=== PATIENT | female | born 1965 | race Caucasian/White ===

== ENCOUNTER → 2023-05-01 14:02 | Outpatient (CLI) | payer OTHER, SELFPAY ==
[2023-05-01 14:40] LABS: Add Manual Diff / Slide Review NO; Basophils Absolute Auto 100 /uL (0-100); Basophils Percent Auto 1.1 % (0-2); Eosinophils Absolute Auto 200 /uL (0-450); Eosinophils Percent Auto 2.8 % (2-4); Hematocrit 44.9 % (36-46); Hemoglobin 15.2 g/dL (12.0-16.0); Lymphocytes Absolute Auto 2300 /uL (1100-4500); Lymphocytes Percent Auto 35.4 % (25-40); Mean Corpuscular HGB Conc 33.9 % (30-36); Mean Corpuscular Hemoglobin 29.1 PG (26-34); Mean Corpuscular Volume 85.8 fL (80-100); Monocytes Absolute Auto 600 /uL (0-900); Monocytes Percent Auto 9.9 % (3-14); Neutrophils Absolute Auto 3300 /uL (1500-7000); Neutrophils Percent Auto 50.8 % (50-75); Platelet Count 227 X10^3/uL (150-400); Red Blood Cell Count 5.24 X10^6/uL (4.0-5.2); Red Cell Distribution Width 13.8 % (11.6-14.8); White Blood Cell Count 6.5 X10^3/uL (4.5-11.0)
[2023-05-01 15:04] LABS: Alanine Aminotransferase 35 IU/L (<35); Albumin 4.6 g/dL (3.5-5.0); Albumin Globulin Ratio 1.5 (1.0-2.8); Alkaline Phosphatase 81 U/L (38-126); Aspartate Aminotransferase 33 IU/L (14-36); BUN Creatinine Ratio 16.3 (6-22); Bilirubin Total 0.7 mg/dL (0.2-1.3); Blood Urea Nitrogen 16 mg/dL (7-17); Calcium 9.5 mg/dL (8.4-10.2); Carbon Dioxide 23 mmol/L (22-32); Chloride 105 mmol/L (98-107); Cholesterol 231 mg/dL (140-199); Estimated Glomerular Filt Rate > 60 mL/min (>60); Globulin 3.1 g/dL (1.7-4.1); Glucose 197 mg/dL (70-100); HDL Cholesterol 43 mg/dL (40-60); HEMOLYSIS < 15 (0-50); LDL Cholesterol Calculated 155 mg/dL (<100); Potassium 4.4 mmol/L (3.4-5.1); Sodium 137 mmol/L (137-145); Total Protein 7.7 g/dL (6.3-8.2); Triglycerides 164 mg/dL (35-150)
[2023-05-01 15:33] LABS: TSH w/ Reflex to FT4 2.92 uIU/mL (0.47-4.68)
== END ==
PROVIDERS: PCP Family Medicine; Referring Provider Family Medicine; Visit Provider Family Medicine
DX: Z00.00 Encounter for general adult medical examination without abnormal findings (principal); R53.83 Other fatigue
CPT/HCPCS: 36415; 80053; 80061; 84153; 84443; 85025

== ENCOUNTER → 2023-06-03 12:23 | Outpatient (CLI) | payer OTHER, SELFPAY ==
[2023-06-03 13:52] LABS: Alanine Aminotransferase 34 IU/L (<35); Albumin 4.7 g/dL (3.5-5.0); Albumin Globulin Ratio 1.8 (1.0-2.8); Alkaline Phosphatase 78 U/L (38-126); Aspartate Aminotransferase 31 IU/L (14-36); BUN Creatinine Ratio 14.1 (6-22); Bilirubin Total 0.7 mg/dL (0.2-1.3); Blood Urea Nitrogen 13 mg/dL (7-17); Calcium 9.6 mg/dL (8.4-10.2); Carbon Dioxide 26 mmol/L (22-32); Chloride 105 mmol/L (98-107); Estimated Glomerular Filt Rate > 60 mL/min (>60); Globulin 2.6 g/dL (1.7-4.1); Glucose 143 mg/dL (70-100); HEMOLYSIS < 15 (0-50); Potassium 4.2 mmol/L (3.4-5.1); Sodium 137 mmol/L (137-145); Total Protein 7.3 g/dL (6.3-8.2)
[2023-06-03 14:17] LABS: Hemoglobin A1C% w Est Avg Glu 9.6 % (4.0-6.0)
== END ==
LOC: LAB 12:24
PROVIDERS: PCP Family Medicine; Referring Provider Family Medicine; Visit Provider Family Medicine
DX: R73.09 Other abnormal glucose (principal)
CPT/HCPCS: 36415; 80053; 83036

== ENCOUNTER → 2023-07-23 16:30 | Outpatient (CLI) | payer OTHER, SELFPAY ==
[2023-07-23 17:34] LABS: Hemoglobin A1C% w Est Avg Glu 7.2 % (4.0-6.0)
[2023-07-23 18:03] LABS: Alanine Aminotransferase 25 IU/L (<50); Albumin 4.5 g/dL (3.5-5.0); Albumin Globulin Ratio 1.7 (1.0-2.8); Alkaline Phosphatase 62 U/L (38-126); Aspartate Aminotransferase 33 IU/L (17-59); BUN Creatinine Ratio 10.9 (6-22); Bilirubin Total 0.7 mg/dL (0.2-1.3); Blood Urea Nitrogen 10 mg/dL (9-20); Calcium 9.7 mg/dL (8.4-10.2); Carbon Dioxide 24 mmol/L (22-32); Chloride 104 mmol/L (98-107); Cholesterol 216 mg/dL (140-199); Estimated Glomerular Filt Rate > 60 mL/min (>60); Globulin 2.6 g/dL (1.7-4.1); Glucose 76 mg/dL (70-100); HDL Cholesterol 53 mg/dL (40-60); HEMOLYSIS < 15 (0-50); LDL Cholesterol Calculated 149 mg/dL (<100); Potassium 4.3 mmol/L (3.4-5.1); Sodium 138 mmol/L (137-145); Total Protein 7.1 g/dL (6.3-8.2); Triglycerides 68 mg/dL (35-150)
== END ==
PROVIDERS: PCP Family Medicine; Referring Provider Family Medicine; Visit Provider Family Medicine
DX: E78.5 Hyperlipidemia, unspecified (principal); E11.9 Type 2 diabetes mellitus without complications; R53.83 Other fatigue
CPT/HCPCS: 36415; 80053; 80061; 83036

== ENCOUNTER → 2023-08-04 10:45 | Outpatient (CLI) | payer OTHER, SELFPAY ==
--- NOTE | 2023-08-20 18:12 | DIAB.MNT ---
Initial Diabetes Medical Nutrition Therapy Assessment Name: Jacob Sam Date: 08/04/23 Time: 11a-12p Dx: Type II Diabetes Learning style: watching, reading, doing Murtaza presents with , Lis, for initial Dm visit. Reports new diagnosis with last two hgA1c of 9.6% 05/2023 and 7.2% 07/2023. Great improvement in HgA1c over the last two months with diet changes Endorses some numbness/tingling in feet. Wants to understand more about good carbs vs bad carbs, label reading, total CHO recs, Currently on a very low CHO diet per report. Wants to add some better CHO to diet. Diet Recall: 7a: eggs and coffee 11a: Tajik yogurt plain with berries and carrots 530p: protein and veggies 6-8p: sf chocolate or 100kcal popcorn bag 16.9oz x 3-4 water, coffee, diet soda Anthropometrics: Ht: 69 Wt: 190# 07/2023 at PCP Physical Activity: Walks everyday 3-4 mi (45 min or more). Weekends more walks, 5mi. Likes to walk and hike. Self-Monitoring Blood Glucose: None Diabetes Medications: 500mg Metformin BID Pertinent Labs: HgA1c: 9.6% 05/2023 7.2% 07/2023 cholesterol: 216 LDL: 149 HDL: 53 T Past Medical History: (Last Reviewed 07/28/23 @ 16:11 by Meliton Storm DO) Acne Allergies (~2015) Diabetic neuropathy Eczema Fatigue Foot pain (~2022) Hearing loss (~2021) Right Hyperlipidemia Preventative health care Shrimp allergy (~2014) Strain of left foot Type 2 diabetes mellitus Nutrition Rx: Carbohydrates: Meal:45g Snack:15-30g Nutrition Diagnosis: - Food and nutrition related knowledge deficit r/t new dx T2dm aeb pt report, diet recall, and hga1c >6.5% Intervention: This participant was very receptive. Provided appropriate educational handouts. Discussed the following topics: Completed intake assessment. Discussed barriers to care. Pathophysiology of T2DM HgA1c, its correlation to blood glucose numbers, and rationale for goal Importance of self-monitoring, how often, and when to check. Suggested checking at different times to evaluate meals Plate Method, impact of macronutrients on blood sugar, meal timing, carbohydrate counting, pairing macronutrients and spreading out carbohydrates for better blood glucose management Recommended servings for carbohydrates at meals and snacks Heart health nutrition Brainstormed appropriate meal/snack ideas based on food preferences Role of physical activity and following provider guidelines for safety Created SMART goals for patient self-care and success. Goals: Add 2p snack Pair CHO and protein Check pharmacy for SMBG Follow-up: SHANNA SONI follow-up in 3-4 weeks Claudia Dwyer RDN, NAE Certified Diabetes Care and Head Of English P: [phone] Thank you for this referral
== END ==
PROVIDERS: PCP Family Medicine; Referring Provider Family Medicine
DX: E11.9 Type 2 diabetes mellitus without complications (principal); Z71.3 Dietary counseling and surveillance
CPT/HCPCS: 97802

== ENCOUNTER → 2023-09-08 10:50 | Outpatient (CLI) | payer OTHER, SELFPAY ==
--- NOTE | 2023-09-08 11:06 | DIAB.MNTFU ---
Follow-up Diabetes Medical Nutrition Therapy Assessment Name: Jacob Sam Date: 09/08/23 Time: 9821-3384 Dx: Type II Diabetes Murtaza presents for Dm follow-up. Reports adding an afternoon snack around 515-530p. Feels really hungry after work. Afternoons at work are really busy, so no afternoon snack at 2-3p as previously rec'd. Eats dinner at 6p. Crackers and cheese is usual snack. Noted elevated LDL and total cholesterol last lipids. Dinner has been veggies and protein. Recently returned from vacation. Feels reading to get back to diet changes. States he is unclear on what his wt goal should be. Endorses low 180s for wt 20 years ago. Around 150s after college. Feels his pants are feeling very lose. Diet Recall: 7a: eggs and coffee 11a: Kiswahili yogurt plain with berries and carrots 5p: crackers x 6-8 with cheese 6p: protein and veggies 6-8p: sf chocolate or 100kcal popcorn bag 16.9oz x 3-4 water, coffee, diet soda Anthropometrics: Ht: 69 Wt: 186# reported 190# 07/2023 at PCP Physical Activity: Walks most day 3-4 mi (45 min or more). Weekends more walks, 5mi. Likes to walk and hike. Self-Monitoring Blood Glucose: None. No rx. RD messaged provider workgroup. Diabetes Medications: 500mg Metformin BID Pertinent Labs: HgA1c: 9.6% 05/2023 7.2% 07/2023 cholesterol: 216 LDL: 149 HDL: 53 T Past Medical History: (Last Reviewed 07/28/23 @ 16:11 by Meliton Storm DO) Acne Allergies (~2015) Diabetic neuropathy Eczema Fatigue Foot pain (~2022) Hearing loss (~2021) Right Hyperlipidemia Preventative health care Shrimp allergy (~2014) Strain of left foot Type 2 diabetes mellitus Nutrition Rx: Carbohydrates: Meal:45g Snack:15-30g Nutrition Diagnosis: - Food and nutrition related knowledge deficit r/t new dx T2dm aeb pt report, diet recall, and hga1c >6.5% Intervention: This participant was very receptive. Provided appropriate educational handouts. Discussed the following topics: Completed intake assessment. Discussed barriers to care. Review of CHO and protein combos lower in saturated fat to help with elevated lipids Encouraged 3-4 hours between carb intake Discussed body composition, LBM v fat mass and insulin resistance and metabolism Encouraged safe resistance training to increase LBM Created SMART goals for patient self-care and success. Goals: Add 2p snack- not met Pair CHO and protein- met Check pharmacy for SMBG - continue Try moving snack earlier- new sub nuts/nut butter sometimes instead of cheese at snack- new Look for some slightly more challenging walks/hikes- new Try resistance exercises safely 2x per week - new Follow-up: SHANNA SONI follow-up in 3 months after next pcp / lab visit. Claudia Dwyer RDN, V[employer]CTORES Certified Diabetes Care and Signs And Displays Salesperson P: [phone] Thank you for this referral
== END ==
PROVIDERS: PCP Family Medicine; Referring Provider Family Medicine
DX: E11.9 Type 2 diabetes mellitus without complications (principal); Z71.3 Dietary counseling and surveillance; Z79.84 Long term (current) use of oral hypoglycemic drugs
CPT/HCPCS: 97803

== ENCOUNTER 2023-09-15 09:37 | Day surgery (SDC) | payer OTHER, SELFPAY ==
--- NOTE | 2023-09-15 | PATH_ITS ---
[facility] Accession Number: [id number] No. of containers..01 Tissue . 01 Material submitted: . sigmoid colon - SIGMOID POLYP . 01 Diagnosis: SIGMOID COLON POLYP: Hyperplastic polyp. [facility] 09/17/2023 1102 Local . 01 Electronically signed: . Ming Kohli MD, PhD, Pathologist NPI- [id number] . 01 Gross description: . Received in formalin with two patient identifiers and sigmoid polyp, is a single lopez soft tissue fragment 0.3 cm in greatest dimension. Submitted in cassette A1. ([id number]) /ROBIN 09/16/2023 0827 Local . 01 Pathologist provided ICD-10: K63.5 . 01 CPT . 774891 Specimen Comment: A courtesy copy of this report has been sent to [phone] Performed at: [address] [facility] [id number] MD Paul Morel MD Phone: [phone]
[2023-09-15 10:04] VITALS: BP 115/69; PULSE 80; RESP 16; TEMP 36.2; O2SAT 97
--- NOTE | 2023-09-15 10:12 | P.HP_ITS ---
History of Present Illness History of Present Illness Date Patient Seen: 09/15/23 Time Patient Seen: 10:12 Chief complaint: SDC Narrative: The patient presents for colorectal screening. They have never had any previous examination for such. No personal or family history of colon cancer. On further history denies any recent gastrointestinal symptoms. No nausea, vomiting, abdominal pain, loss of appetite, unexplained weight loss, change in bowel habits, or blood per rectum. [facility] Medical History Eczema Acne Shrimp allergy (~2014) Allergies (~2015) Foot pain (~2022) Hearing loss (~2021) Diabetic neuropathy Hyperlipidemia Type 2 diabetes mellitus Preventative health care Strain of left foot Fatigue Social History Smoking Status: Never smoker Meds Home Medications and Allergies Home Medications Medication Instructions Recorded Confirmed Type metformin 500 mg tablet 500 mg PO BID #180 tabs 06/10/23 09/15/23 Rx atorvastatin 10 mg tablet 10 mg PO BEDTIME #90 tabs 07/28/23 09/15/23 Rx peg 3350-sod sulf,vrrnk-[id number]-vqs 1,000 ml PO DIRECTED #2,000 mL 08/03/23 Rx 178.7-7.3-0.5-1.12-0.9 gram oral soln (Suflave) gabapentin 100 mg capsule 100 mg PO BID #60 caps 08/24/23 09/15/23 Rx Allergies Allergy/AdvReac Type Severity Reaction Status Date / Time shrimp Allergy Mild Verified 09/15/23 09:49 Exam Vital Signs (past 8 hours): - 09/15/23 10:04 Temperature 97.1 F L Pulse Rate 80 Respiratory Rate 16 Blood Pressure 115/69 Pulse Oximetry 97 Oxygen Delivery Method Room Air Oxygen Delivery Method Room Air Narrative Exam Narrative: General adult man alert oriented no acute distress Chest nonlabored respiration Extremities warm well perfused Assessment & Plan Assessment & Plan narrative: The patient requires colorectal screening and colonoscopy is recommended. Technical details were discussed. Risks, benefits, alternatives explained. Ris ks including but not limited to myocardial infarction, aspiration, bleeding, pain, missed lesion, incomplete examination, need for further radiographic studies, intestinal injury, and need for major abdominal surgery were discussed. All questions were answered to their satisfaction, and they are in agreement with this plan. Time-Based Coding :: [TOTAL MINUTES] spent with patient and on the chart (including review of chart, obtaining history, exam, reviewing outside data, placing orders, documenting exam and treatment plan, and counseling patient) on [DATE].
[2023-09-15 11:10] VITALS: BP 105/66; PULSE 76; RESP 18; TEMP 36.9; O2SAT 96
--- NOTE | 2023-09-15 11:12 | P.OP.COLON_ITS ---
Operative Date/Time/Diagnoses Date of procedure: 09/15/23 Time of procedure: 11:12 Pre-op diagnosis: Colorectal screening Post-op diagnosis: other (Colonic polyp x1) Procedure & Clinicians Study performed: Screening colonoscopy and polypectomy Same procedure as scheduled: Yes Indications: Colorectal screening Surgeon: Issac Martins Procedure Notes Procedure in detail: The history and physical was performed/updated and the patient is ASA class is 2. The procedure was discussed in detail with the patient. Potential risks complications including infection, bleeding, missed diagnosis, perforation, need for surgery, and were explained. Their questions were answered and informed consent was obtained. Patient was brought to the procedure room and placed standard monitoring equipment. The patient's vital signs were monitored continuously throughout the entire procedure. Prior to starting time-out was performed. The patient was placed in the left lateral recumbent position. Procedural sedation was administered by anesthesia. Examination began with a thorough inspection of the perianal area there was no evidence of fissures, fistulae, external hemorrhoids or cutaneous malignancy. The colonoscopy scope was then placed into the anal canal and was advanced to the cecum, which was identified by the ileocecal valve, the appendiceal orifice and the confluence of the taenia. The scope was then slowly withdrawn examining colon thoroughly in all directions, irrigating it of any residual stool. The scope was retroflexed within the rectum The patient tolerated the procedure well. They will be discharged once criteria are met. The prep was of good/excellent quality. The withdrawl time was 7 minutes. FINDINGS * Sigmoid colon-3 mm flat polyp removed with biopsy forceps * Mild diverticulosis of descending colon. Specimen(s): other (Sigmoid colon polyp) Impression: Colonic polyp x1 Post-procedure Recommendations: High fiber diet Plan for aftercare: Colonoscopy follow-up is dependent on pathology findings Disposition: same day surgery
[2023-09-15 11:15] VITALS: BP 113/67; PULSE 69; RESP 12; TEMP 36.9; O2SAT 96
[2023-09-15 11:20] VITALS: BP 123/60; PULSE 79; RESP 15; TEMP 36.9; O2SAT 99
== END 2023-09-15 11:39 | disposition home or self-care (01) ==
PROVIDERS: PCP Family Medicine; Referring Provider Surgery; Visit Provider Surgery
PROC: 0DJD8ZZ Inspection of Lower Intestinal Tract, Via Natural or Artificial Opening Endoscopic (ICD-10-PCS; CPT 45378; principal; 2023-09-15 10:45)
DX: Z12.11 Encounter for screening for malignant neoplasm of colon (principal); K57.30 Diverticulosis of large intestine without perforation or abscess without bleeding; K63.5 Polyp of colon
CPT/HCPCS: 45380; 82962; J2704

== ENCOUNTER → 2023-11-23 15:17 | Outpatient (CLI) | payer OTHER, SELFPAY ==
[2023-11-23 16:17] LABS: Hemoglobin A1C% w Est Avg Glu 6.3 % (4.0-6.0)
[2023-11-23 16:20] LABS: Alanine Aminotransferase 21 IU/L (<50); Albumin 4.3 g/dL (3.5-5.0); Albumin Globulin Ratio 1.5 (1.0-2.8); Alkaline Phosphatase 64 U/L (38-126); Aspartate Aminotransferase 29 IU/L (17-59); BUN Creatinine Ratio 14.4 (6-22); Bilirubin Total 0.7 mg/dL (0.2-1.3); Blood Urea Nitrogen 13 mg/dL (9-20); Calcium 9.2 mg/dL (8.4-10.2); Carbon Dioxide 27 mmol/L (22-32); Chloride 102 mmol/L (98-107); Cholesterol 155 mg/dL (140-199); Estimated Glomerular Filt Rate > 60 mL/min (>60); Globulin 2.9 g/dL (1.7-4.1); Glucose 98 mg/dL (70-100); HDL Cholesterol 49 mg/dL (40-60); HEMOLYSIS < 15 (0-50); LDL Cholesterol Calculated 90 mg/dL (<100); Potassium 3.8 mmol/L (3.4-5.1); Sodium 136 mmol/L (137-145); Total Protein 7.2 g/dL (6.3-8.2); Triglycerides 82 mg/dL (35-150)
== END ==
PROVIDERS: PCP Family Medicine; Referring Provider Family Medicine; Visit Provider Family Medicine
DX: E11.9 Type 2 diabetes mellitus without complications (principal); E78.5 Hyperlipidemia, unspecified
CPT/HCPCS: 36415; 80053; 80061; 83036

== ENCOUNTER → 2024-04-06 11:42 | Outpatient (CLI) | payer OTHER, SELFPAY ==
[2024-04-06 12:37] LABS: Alanine Aminotransferase 33 IU/L (<50); Albumin Globulin Ratio 1.9 (1.0-2.8); Alkaline Phosphatase 62 U/L (38-126); Aspartate Aminotransferase 34 IU/L (17-59); BUN Creatinine Ratio 12.8 (6-22); Bilirubin Total 0.6 mg/dL (0.2-1.3); Blood Urea Nitrogen 14 mg/dL (9-20); Calcium 9.3 mg/dL (8.4-10.2); Carbon Dioxide 25 mmol/L (22-32); Chloride 103 mmol/L (98-107); Cholesterol 184 mg/dL (140-199); Estimated Glomerular Filt Rate > 60 mL/min (>60); Globulin 2.6 g/dL (1.7-4.1); Glucose 112 mg/dL (70-100); HDL Cholesterol 54 mg/dL (40-60); HEMOLYSIS < 15 (0-50); Hemoglobin A1C% w Est Avg Glu 6.1 % (4.0-6.0); LDL Cholesterol Calculated 115 mg/dL (<100); Potassium 4.6 mmol/L (3.4-5.1); Sodium 138 mmol/L (137-145); Total Protein 7.6 g/dL (6.3-8.2); Triglycerides 75 mg/dL (35-150)
== END ==
LOC: LAB 11:43
PROVIDERS: PCP Family Medicine; Referring Provider Family Medicine; Visit Provider Family Medicine
DX: E11.9 Type 2 diabetes mellitus without complications (principal); E78.5 Hyperlipidemia, unspecified
CPT/HCPCS: 36415; 80053; 80061; 83036

== ENCOUNTER → 2025-01-23 15:48 | Outpatient (CLI) | payer OTHER, SELFPAY ==
[2025-01-23 16:40] LABS: Add Manual Diff / Slide Review NO; Hematocrit 44.1 % (41-53); Hemoglobin 15.0 g/dL (13.5-17.5); Lymphocytes Absolute Auto 2100 /uL (1100-4500); Mean Corpuscular HGB Conc 34.0 % (30-36); Mean Corpuscular Hemoglobin 29.6 PG (26-34); Mean Corpuscular Volume 87.1 fL (80-100); Platelet Count 208 X10^3/uL (150-400)
[2025-01-23 17:23] LABS: Alanine Aminotransferase 30 IU/L (<50); Albumin 4.8 g/dL (3.5-5.0); Albumin Globulin Ratio 1.8 (1.0-2.8); Alkaline Phosphatase 70 U/L (38-126); Blood Urea Nitrogen 12 mg/dL (9-20); Calcium 9.2 mg/dL (8.4-10.2); Carbon Dioxide 21 mmol/L (22-32); Chloride 105 mmol/L (98-107); Estimated Glomerular Filt Rate > 60 mL/min (>60); Globulin 2.7 g/dL (1.7-4.1); Glucose 112 mg/dL (70-99); HEMOLYSIS < 15 (0-50); Potassium 4.2 mmol/L (3.4-5.1); Sodium 138 mmol/L (137-145); Total Protein 7.5 g/dL (6.3-8.2)
[2025-01-23 17:28] LABS: Hemoglobin A1C% w Est Avg Glu 6.7 % (4.0-6.0)
[2025-01-23 17:54] LABS: TSH w/ Reflex to FT4 3.28 uIU/mL (0.47-4.68)
[2025-01-23 17:55] LABS: Prostate Specific Antigen 0.512 ng/mL (0.10-4.00)
== END ==
PROVIDERS: PCP Family Medicine; Referring Provider Family Medicine; Visit Provider Family Medicine
DX: E11.49 Type 2 diabetes mellitus with other diabetic neurological complication (principal); E78.2 Mixed hyperlipidemia; R53.82 Chronic fatigue, unspecified
CPT/HCPCS: 36415; 80053; 83036; 84153; 84443; 85025